=== PATIENT | female | born 1980 | race Caucasian/White ===

== ENCOUNTER 2017-05-05 13:15 | Observation (INO) | payer OTHER ==
[~2017-05-05] VITALS: Ht 160 cm; Wt 74.6 kg
[2017-05-05 14:10] VITALS: BP 127/80
[2017-05-10] MEDS ORDERED: PREN1TAB80 PO (09:11)
[2017-05-10] MEDS ORDERED: ACET-66 PO (09:12)
[2017-05-10] MEDS ORDERED: FOLI1 PO (09:12)
== END 2017-05-05 14:50 | disposition home or self-care (01) ==
LOC: 4S 13:15
PROVIDERS: ADMIT Obstetrics & Gynecology; ATTEND Obstetrics & Gynecology
DX: O48.0 Post-term pregnancy (principal); Z3A.40 40 weeks gestation of pregnancy
CPT/HCPCS: 59025; G0378

== ENCOUNTER 2019-10-03 20:12 | Inpatient (IN) | payer OTHER ==
[~2019-10-03] VITALS: Ht 162.6 cm; Wt 78.9 kg
[~2019-10-03 20:12] MED LIST: DSS100 PO; FERR-89 PO; FOLI1 PO; IBUP-2070 PO; PREN1TAB80 PO
[2019-10-03] MEDS ORDERED: RINGERS SOLUTION,LACTATED 1,000 ML IV PRN (20:14)
[2019-10-03] MEDS ORDERED: METOCLOPRAMIDE HCL 5 MG/ML 2 ML VIAL IVP PRN (20:15)
[2019-10-03] MEDS ORDERED: FentaNYL CITRATE-PF 100 MCG/2 ML VIAL IVP PRN (20:15)
[2019-10-03] MEDS ORDERED: CITRIC ACID/SODIUM CITRATE 30 ML SOLUTION UDCUP PO PRN (20:15)
[2019-10-03] MEDS ORDERED: LIDOCAINE/PF 1% 30 ML VIAL INJ PRN (20:15)
[2019-10-03 20:55] LABS: BASOPHILS % (AUTO) 0.3 % (0.0-2.0); EOSINOPHILS % (AUTO) 0.6 % (1.0-6.0); HEMATOCRIT 37.5 % (36-46); HEMOGLOBIN 12.8 g/dL (12.0-16.0); LYMPHOCYTES # (AUTO) 1.3 K/uL (1.0-4.8); LYMPHOCYTES % (AUTO) 20.1 % (22.0-44.0); MEAN CORPUSCULAR HEMOGLOBIN 30.1 pg (26.0-34.0); MEAN CORPUSCULAR HGB CONC 34.1 G/dL (31.0-37.0); MEAN CORPUSCULAR VOLUME 88 fL (80-100); MONOCYTES # (AUTO) 0.4 K/uL (0.1-1.0); MONOCYTES % (AUTO) 6.8 % (2.0-9.0); NEUTROPHILS # (AUTO) 4.5 K/uL (1.8-7.7); NEUTROPHILS % (AUTO) 72.2 % (40.0-70.0); PLATELET COUNT (AUTO) 202 K/uL (150-450); RED BLOOD CELL COUNT(AUTO) 4.25 MIL/uL (4.00-5.20); RED CELL DISTRIBUTION WIDTH 14.7 % (11.5-14.5)
[2019-10-03] MEDS ORDERED: MISOPROSTOL 50 MCG TABLET PO ONE (21:15)
[2019-10-03] MEDS ORDERED: PNV11TAB PO (21:47)
[2019-10-03 22:00] VITALS: BP 133/83
[2019-10-03] MEDS ORDERED: INFLUENZA VIRUS VACCINE QVS 2019-20 (3YR+)/PF 60 MCG/0.5 ML SYRINGE IM ONE (22:15)
[2019-10-03] MEDS: RINGERS SOLUTION,LACTATED 1,000 ML IV SCH (22:48)
[2019-10-04] MEDS ORDERED: MISOPROSTOL 50 MCG TABLET PO ONE (02:45)
[2019-10-04] MEDS ORDERED: OXYTOCIN 30 UNITS/LACT RINGERS 500 ML IV PRN ×2 (04:18→08:10)
[2019-10-04] MEDS: RINGERS SOLUTION,LACTATED 1,000 ML IV SCH (05:48)
[2019-10-04] MEDS ORDERED: ROPIVACAINE HCL/PF 0.2% 100 ML ED ONE (05:58)
[2019-10-04] MEDS ORDERED: DiphenhydrAMINE HCL 50 MG/ML VIAL IVP PRN (06:00)
[2019-10-04] MEDS ORDERED: ROPIVACAINE HCL/PF 0.2% 100 ML ED PRN (06:00)
[2019-10-04] MEDS ORDERED: ONDANSETRON HCL 4 MG/2 ML VIAL IVP PRN (06:00)
[2019-10-04] MEDS ORDERED: CeFAZolin 2 GM/DEXTROSE 50 ML IV ONE ×2 (09:30→10:30)
[2019-10-04] MEDS ORDERED: LANOLIN 7 GM OINTMENT TP PRN (10:15)
[2019-10-04] MEDS ORDERED: ACETAMINOPHEN/CODEINE 300-30 MG TABLET PO PRN ×2 (10:15)
[2019-10-04] MEDS ORDERED: OXYTOCIN 30 UNITS/LACT RINGERS 500 ML IV ONE (10:20)
[2019-10-04] MEDS: GLYCERIN/WITCH HAZEL LEAF 40 PADS JAR TP PRN (10:55)
[2019-10-04] MEDS: BENZOCAINE 20%/MENTHOL 56 GM SPRAY CANISTER TP PRN (10:55)
[2019-10-04] MEDS: IBUPROFEN 800 MG TABLET PO SCH ×2 (10:58→16:57)
[2019-10-04] MEDS: MAGNESIUM HYDROXIDE SUSPENSION 30 ML UDCUP PO SCH (21:10)
[2019-10-05] MEDS: IBUPROFEN 800 MG TABLET PO SCH ×2 (00:01→07:05)
[2019-10-05] MEDS: MAGNESIUM HYDROXIDE SUSPENSION 30 ML UDCUP PO SCH (08:38)
[2019-10-05] MEDS ORDERED: ACET-2247 PO (09:40)
[2019-10-05] MEDS ORDERED: HYDR30CR3 TP (11:51)
[2019-10-05] MEDS: BENZOCAINE 20%/MENTHOL 56 GM SPRAY CANISTER TP PRN (12:39)
[2019-10-05] MEDS: GLYCERIN/WITCH HAZEL LEAF 40 PADS JAR TP PRN (12:39)
== END 2019-10-05 12:50 | disposition home or self-care (01) | DRG 807 ==
LOC: OBSVTOIN 20:12 → 4S 20:12
PROVIDERS: ADMIT Obstetrics & Gynecology; ATTEND Obstetrics & Gynecology
PROC: 3E02340 Introduction of Influenza Vaccine into Muscle, Percutaneous Approach (ICD-10-PCS; 2019-10-03)
PROC: 10D07Z6 Extraction of Products of Conception, Vacuum, Via Natural or Artificial Opening (ICD-10-PCS; principal; 2019-10-04)
PROC: 0HQ9XZZ Repair Perineum Skin, External Approach (ICD-10-PCS; 2019-10-04)
PROC: 3E0R3BZ Introduction of Anesthetic Agent into Spinal Canal, Percutaneous Approach (ICD-10-PCS; 2019-10-04)
PROC: 00HU33Z Insertion of Infusion Device into Spinal Canal, Percutaneous Approach (ICD-10-PCS; 2019-10-04)
DX: O69.81X0 Labor and delivery complicated by cord around neck, without compression, not applicable or unspecified (principal); O70.0 First degree perineal laceration during delivery; Z37.0 Single live birth; Z3A.39 39 weeks gestation of pregnancy; Z23 Encounter for immunization
CPT/HCPCS: 86850; 86900; 86901; 90686; J0690; J2405; J2590; J2795; J7120